=== PATIENT | male | born 1955 | race Caucasian/White ===

== ENCOUNTER → 2016-12-15 | Day surgery (SDC) | payer OTHER ==
--- NOTE | 2016-12-16 16:01 | PATH ---
Cytology Non-Gynecological Report Patient Name: DIOGENES DANIELS [facility]. Rec. #: [id number] /Age/Gender: 1955 (Age: 61) / M Account: [id number] Location: RADIOLOGY Taken: 12/15/2016 Received: 12/15/2016 Reported: 12/16/2016 Physicians: Mati Lew M.D. Specimen(s) Received RIGHT THYROID FNA Clinical History Right thyroid nodule, 1.80 x 1.49 x 1.38 cm Final Diagnosis THYROID GLAND, RIGHT LOBE, US GUIDED FINE NEEDLE ASPIRATION BIOPSY: EVALUATION IS LIMITED BY LOW CELLULARITY. SCATTERED BLAND APPEARING FOLLICULAR EPITHELIAL CELLS AND SOME COLLOID (SEE COMMENT). Comment: The smears the cell block are hypocellular and show scattered bland appearing follicular epithelial cells and a small amount of colloid. The findings are suggestive of nodular hyperplasia ([place] Category II); however, the evaluation is limited due to low cellularity. Clinical and imaging correlations and follow up are suggested. Electronically Signed Shine Reis M.D. Gross Description Received are three air dried smears, three smears in 95% alcohol, and 20 cc of bloody fluid in formalin. Three diff-quik stained slides, three Pap stained slides and one cell block are made.
== END | disposition home or self-care (01) ==
LOC: JRADIR 08:46
PROVIDERS: ATTEND Internal Medicine
PROC: BG44ZZZ Ultrasonography of Thyroid Gland (ICD-10-PCS; principal; 2016-12-15)
PROC: 0G9H3ZX Drainage of Right Thyroid Gland Lobe, Percutaneous Approach, Diagnostic (ICD-10-PCS; 2016-12-15)
DX: E04.1 Nontoxic single thyroid nodule (principal)
CPT/HCPCS: 76942; 88173; 88305-TC

== ENCOUNTER 2023-10-17 15:40 | Emergency (ER) | payer OTHER ==
[2023-10-17 15:54] VITALS: BP 165/88; PULSE 84; RESP 19; TEMP 97.8; BMI 25.8
[2023-10-17] MEDS ORDERED: ACETAMINOPHEN 500 MG TABLET (FP) PO ONE (18:12)
[2023-10-17] MEDS ORDERED: ACETAMINOPHEN 500 MG TABLET (FP) ONE (18:19)
== END 2023-10-17 18:23 | disposition home or self-care (01) ==
LOC: JERFT 15:40
DX: S93.401A Sprain of unspecified ligament of right ankle, initial encounter (principal); W01.0XXA Fall on same level from slipping, tripping and stumbling without subsequent striking against object, initial encounter; Y92.9 Unspecified place or not applicable
CPT/HCPCS: 73610-TC-RT-FY; 99283-25